=== PATIENT | female | born 1980 | race Caucasian/White ===

== ENCOUNTER 2016-08-19 10:02 | Emergency (ER) | payer OTHER ==
[2016-08-19 10:15] VITALS: BP 145/80; PULSE 78; RESP 17; TEMP 98.2; O2SAT 99
[2016-08-19 10:16] VITALS: BMI 26.2
--- NOTE | 2016-08-19 10:41 | ED PDOC ---
Arrival/HPI - General Chief Complaint: Lower Extremity Problem/Injury Time Seen by Provider: 08/19/16 10:32 Historian: Patient - History of Present Illness Narrative History of Present Illness (Text): 08/19/16 10:37 36 y/o female, no signfiicant pmh, nkda, c/o rt. calf pain x 2 days with no fall or trauma. Pt. stated that she stand alot, rt. calf started to hurt yesterday, aggravated by extensive standing, no skin discoloration or change of the temperature, no chest pain or shortness of breath, no numbness or tingling, no other medical or psychological complaints. 08/19/16 11:32 Past Medical History - Provider Review Nursing Documentation Reviewed: Yes - Infectious Disease Hx of Infectious Diseases: None - Gastrointestinal Other/Comment: Ectopic pregnacy - Psychiatric Hx Psychophysiologic Disorder: No Hx Substance Use: No - Surgical History Other/Comment: Ectopic preg - Anesthesia Hx Anesthesia: Yes Hx Anesthesia Reactions: No Hx Malignant Hyperthermia: No - Suicidal Assessment Feels Threatened In Home Enviroment: No Family/Social History - Physician Review Nursing Documentation Reviewed: Yes Family/Social History: Unknown Family HX Smoking Status: Light Smoker < 10 Cigarettes Daily Hx Alcohol Use: Yes Hx Substance Use: No Hx Substance Use Treatment: No Allergies/Home Meds Allergies/Adverse Reactions: Allergies fluconazole [From Diflucan] Allergy (Verified 08/19/16 10:11) ANAPHYLAXIS seafood Allergy (Uncoded 08/19/16 10:11) ITCHING Review of Systems - Review of Systems Constitutional: absent: Fatigue, Fevers Eyes: absent: Vision Changes ENT: absent: Hearing Changes Respiratory: absent: SOB, Cough Cardiovascular: absent: Chest Pain Gastrointestinal: absent: Abdominal Pain, Nausea, Vomiting Musculoskeletal: Myalgias. absent: Arthralgias, Back Pain, Neck Pain, Joint Swelling Skin: absent: Rash, Pruritis Physical Exam Vital Signs Reviewed: Yes Vital Signs Temp Pulse Resp BP Pulse Ox 08/19/16 10:14 98.2 F 78 17 145/80 99 Temperature: Afebrile Blood Pressure: Normal Pulse: Regular Respiratory Rate: Normal Appearance: Positive for: Well-Appearing, Non-Toxic, Comfortable Pain Distress: Moderate Mental Status: Positive for: Alert and Oriented X 3 - Systems Exam Head: Present: Atraumatic, Normocephalic Pupils: Present: PERRL Extroacular Muscles: Present: EOMI Conjunctiva: Present: Normal Mouth: Present: Moist Mucous Membranes Neck: Present: Normal Range of Motion Respiratory/Chest: Present: Clear to Auscultation, Good Air Exchange. No: Respiratory Distress, Accessory Muscle Use Cardiovascular: Present: Regular Rate and Rhythm, Normal S1, S2. No: Murmurs Abdomen: Present: Normal Bowel Sounds. No: Tenderness, Distention, Peritoneal Signs Back: Present: Normal Inspection Upper Extremity: Present: Normal Inspection. No: Cyanosis, Edema Lower Extremity: Present: Normal Inspection, Other (Rt. lower extremity: no bony or joint tenderness, negative shine and ross sign but subjective complaining about the rt. calf pain, no cellulitis or streaking, no ulcers, FROM without limitation, sensation intact, motor 5/5, +DPPT pulses, capillary refill< 2 seconds, neurovascular intact. ). No: Edema Neurological: Present: GCS=15, CN II-XII Intact, Speech Normal Skin: Present: Warm, Dry, Normal Color. No: Rashes Psychiatric: Present: Alert, Oriented x 3, Normal Insight, Normal Concentration Medical Decision Making ED Course and Treatment: 08/19/16 10:41 -Due to the location of the pain with high risk for DVT, I will obtain a DVT study with the NSAID for pain. -RLE venuous doppler -Toradol IM -Observe and reassess 08/19/16 11:32 -Pain decreased -Urine hcg negative -RLE venuous doppler as per preliminary report, no acute DVT -Pt. refused crutches and cane. -Discharge home with motrin, flexeril, heat compression, bed rest, no gym or exercise for 7 days, follow up with your own pmd within 2 days, return to the ER for any new or worsening signs or symptoms. - RAD Interpretation Radiology Orders: 08/19/16 10:37 DUPLEX LOWER EXTRM VEIN RIGHT [US] Stat RLE Venuous Doppler: as per preliminary report, no acute DVT. Dba Developer: Radiologist - Medication Orders Current Medication Orders: Discontinued Medications Ketorolac Tromethamine (Toradol) 60 mg IM STAT STA Stop: 08/19/16 10:38 Last Admin: 08/19/16 10:45 Dose: 60 MG IM Administration Charges Document 08/19/16 10:45 EQ (Rec: 08/19/16 10:45 EQ [facility] [id number] Injection Site MAR Injection Site Left Deltoid Charges for Administration # of IM Administrations 1 - PA / SYSTEM AUDITOR / Resident Statement MD/DO has reviewed & agrees with the documentation as recorded. Disposition/Present on Arrival - Present on Arrival Any Indicators Present on Arrival: No History of DVT/PE: No History of Uncontrolled Diabetes: No Urinary Catheter: No History of Decub. Ulcer: No History Surgical Site Infection Following: None - Disposition Have Diagnosis and Disposition been Completed?: Yes Diagnosis: Leg pain, right Disposition: HOME/ ROUTINE Disposition Time: 11:34 Patient Plan: Discharge Condition: GOOD Additional Instructions: Discharge home with motrin, flexeril, heat compression, bed rest, no gym or exercise for 7 days, follow up with your own pmd within 2 days, return to the ER for any new or worsening signs or symptoms. Prescriptions: Cyclobenzaprine [Cyclobenzaprine HCl] 10 mg PO TID PRN #21 tab PRN Reason: Other Ibuprofen [Motrin] 600 mg PO QID PRN #24 tab PRN Reason: Other Referrals: [facility] [place] [facility] [place] - Follow up with primary Forms: WORK NOTE
--- NOTE | 2016-08-19 15:16 | US ---
PROCEDURE: Right lower extremity venous US HISTORY: Leg pain and swelling. Evaluate for DVT. PHYSICIAN(S): Boston Rush M.D. TECHNIQUE: Duplex sonography and color-flow Doppler with graded compression were used to evaluate the deep venous system of the right lower extremity. FINDINGS: The visualized deep venous system of the right lower extremity is sonographically normal and compressible. Normal waveforms and augmentation are seen. There is no sonographic evidence for deep venous thrombosis in the visualized segments of the right lower extremity. IMPRESSION: 1. No sonographic evidence for deep venous thrombosis in the visualized segments of the right lower extremity.
== END 2016-08-19 11:57 | disposition home or self-care (01) ==
LOC: ED 10:02
DX: M79.604 Pain in right leg (principal)
CPT/HCPCS: 93971; 96372; 99284; J1885

== ENCOUNTER 2017-05-08 08:53 | Emergency (ER) | payer OTHER ==
[2017-05-08 09:13] VITALS: BMI 25.7
[2017-05-08 09:15] VITALS: BP 121/74; PULSE 82; RESP 14; TEMP 97.9; O2SAT 96
--- NOTE | 2017-05-08 09:59 | ED PDOC ---
Arrival/HPI - History of Present Illness Symptom Onset: Other Symptom Course: Unchanged Quality: Cramping Severity Level: 5 - General Chief Complaint: ENT Problem Time Seen by Provider: 05/08/17 09:15 - History of Present Illness Narrative History of Present Illness (Text): 36 year old female with no significant PMHx presents complaining of Headache x 2 weeks, Fever since Friday, and Abdominal pain x 4 days. Patients states she has tried multiple NSAIDS for her headache and it has not resolved. She states "It feels like my brain is swollen". Patient went to PMD and was diagnosed with UTI and given Bactrim. Patient has not tried any modalities to treat her abdominal pain, she denies any nausea or vomiting but does complain of loose stools. She describes abdominal pain as achy, non radiating and rates it a 5/ 10. ROS POSITIVES: Headache, abdominal pain, subjective fever NEGATIVES: Dizziness, SOB, Chest pain, N/V/D, constipation, urinary symptoms. (Vicenta Tirado) Past Medical History - Provider Review Nursing Documentation Reviewed: Yes - Past History Past History: No Previous - Infectious Disease Hx of Infectious Diseases: None - Gastrointestinal Other/Comment: Ectopic pregnacy - Psychiatric Hx Psychophysiologic Disorder: No Hx Substance Use: No - Surgical History Other/Comment: Ectopic preg - Anesthesia Hx Anesthesia: Yes Hx Anesthesia Reactions: No Hx Malignant Hyperthermia: No - Suicidal Assessment Feels Threatened In Home Enviroment: No Family/Social History - Physician Review Nursing Documentation Reviewed: Yes Family/Social History: Diabetes, Hypertension Smoking Status: Light Smoker < 10 Cigarettes Daily Hx Alcohol Use: Yes Hx Substance Use: No Hx Substance Use Treatment: No Allergies/Home Meds Allergies/Adverse Reactions: Allergies fluconazole [From Diflucan] Allergy (Verified 05/08/17 09:11) ANAPHYLAXIS seafood Allergy (Uncoded 05/08/17 09:11) ITCHING Review of Systems - Physician Review All systems were reviewed & negative as marked: Yes (As per HPI) - Review of Systems Respiratory: Normal. absent: SOB Cardiovascular: Normal. absent: Chest Pain Physical Exam Vital Signs Reviewed: Yes Temperature: Afebrile Blood Pressure: Normal Pulse: Regular Respiratory Rate: Normal Appearance: Positive for: Well-Appearing, Non-Toxic Pain Distress: Mild Mental Status: Positive for: Alert and Oriented X 3 - Systems Exam Head: Present: Atraumatic, Normocephalic. No: Tenderness Pupils: Present: PERRL Extroacular Muscles: Present: EOMI Conjunctiva: Present: Normal Mouth: Present: Moist Mucous Membranes Nose (External): Present: Atraumatic Respiratory/Chest: Present: Clear to Auscultation. No: Wheezes, Rales, Rhonchi Cardiovascular: Present: Regular Rate and Rhythm, Normal S1, S2 Abdomen: Present: Normal Bowel Sounds. No: Tenderness, Distention, Peritoneal Signs, Guarding, Rovsing's Sign Present, Mass/Organomegaly Breast/Axillary: Present: Axillary Lymphad (Right sided, Mild) Back: No: CVA Tenderness Upper Extremity: Present: NORMAL PULSES, Capillary Refill < 2s Neurological: Present: GCS=15, CN II-XII Intact, Speech Normal Lymphatic: Present: Axillary Adenopathy Psychiatric: Present: Alert, Oriented x 3, Normal Affect, Normal Mood Vital Signs Temp Pulse Resp BP Pulse Ox 05/08/17 09:15 97.9 F 82 14 121/74 96 Medical Decision Making Reassessment Condition: Improved - Lab Interpretations I have reviewed the lab results: Yes - RAD Interpretation Ground Crewman Aircraft Support: ED Physician, Radiologist ED Course and Treatment: 36 year old female with no PMHx presents with Fever, Headache, and Abdominal Pain --CBC --CMP --UA --Reglan --Toradol --Reassess and Disposition Reassessment: Symptoms have improved Labs unremarkable Patient is stable for discharge. 05/08/17 11:46 (Vicenta Tirado) 36 yo female presents with fever, cough, headache and abdominal pain. I agree with history and physical, assessment and plan of resident. Lungs: CTA b/l, no w/r/r Abdomen: soft, nt, nd, bsx4 Neuro: CN2-12 intact, No NFD, 5/5 MS, sensation intact Labs reviewed. CXR negative. Patient's headache improved with medications. Patient symptoms have been presents for over a week and she's not worsening. She already was treated with antibiotics for a UTI. She has a negative CXR. Her symptoms are consistent with a viral syndrome. She asked for an HIV test and also had one at her doctor's office and they told her it was negative. She will make sure to follow up with her PMD in 1-2days and return to the ED if symptoms worsen or any other concerns. (Ismael Holliday) - Lab Interpretations Lab Results: 05/08/17 10:40 05/08/17 10:40 Lab Results 05/08/17 10:40: Sodium 138, Potassium 4.7, Chloride 104, Carbon Dioxide 25, Anion Gap 14, BUN 11, Creatinine 0.7, Est GFR ( Amer) > 60, Est GFR (Non- Af Amer) > 60, Random Glucose 92, Calcium 9.6, Total Bilirubin 0.4, AST 28, ALT 35, Alkaline Phosphatase 78, Total Protein 7.6, Albumin 4.5, Globulin 3.1, Albumin/Globulin Ratio 1.4, Lipase 54 05/08/17 10:40: WBC 6.7 D, RBC 4.48, Hgb 14.1, Hct 41.2, MCV 92.0, MCH 31.5, MCHC 34.2, RDW 12.4, Plt Count 245, MPV 10.8, Gran % 51.3, Lymph % (Auto) 34.9, [place] % (Auto) 9.8 H, Eos % (Auto) 3.6, Baso % (Auto) 0.4, Gran # 3.44, Lymph # 2.3, [place] # 0.7 H, Eos # 0.2, Baso # 0.03 05/08/17 10:26: Urine Color Yellow, Urine Appearance Sl cloudy, Urine pH 6.5, Ur Specific [place] 1.020, Urine Protein Negative, Urine Glucose (UA) Negative, Urine Ketones Negative, Urine Blood Moderate H, Urine Nitrate Negative, Urine Bilirubin Negative, Urine Urobilinogen 0.2, Ur Leukocyte Esterase Negative, Urine RBC 0 - 2, Urine WBC 0 - 2, Ur Epithelial Cells 6 - 8, Urine Bacteria Few - RAD Interpretation Radiology Orders: 05/08/17 10:38 CXR [CHEST PORTABLE] [RAD] Stat - Medication Orders Current Medication Orders: Discontinued Medications Ketorolac Tromethamine (Toradol) 30 mg IVP STAT STA Stop: 05/08/17 10:15 Last Admin: 05/08/17 11:00 Dose: 30 mg MAR Pain Assessment Document 05/08/17 11:00 OCS (Rec: 05/08/17 11:00 OCS [id number]) Pain Reassessment Is this a pain reassessment? Yes Sleep Is patient sleeping during reassessment? No Presence of Pain Presence of Pain Yes Pain Scale Used Pain Scale Used Numeric Location Pain Location Body Welding Setter Description Description Constant Intensity of Pain at present 10 IVP Administration Document 05/08/17 11:00 OCS (Rec: 05/08/17 11:00 OCS [id number]) Charges for Administration # of IVP Administrations 1 Metoclopramide HCl (Reglan) 10 mg PO STAT STA Stop: 05/08/17 10:15 Last Admin: 05/08/17 11:00 Dose: 10 mg Disposition/Present on Arrival - Present on Arrival Any Indicators Present on Arrival: No History of DVT/PE: No History of Uncontrolled Diabetes: No Urinary Catheter: No History of Decub. Ulcer: No History Surgical Site Infection Following: None - Disposition Have Diagnosis and Disposition been Completed?: Yes Disposition Time: 11:30 Patient Plan: Discharge - Disposition Diagnosis: Viral syndrome, Headache Disposition: HOME/ ROUTINE Condition: IMPROVED Discharge Instructions (ExitCare): Viral Syndrome (ED) Additional Instructions: Ms Blakely, thank you for letting us take care of you today. Your provider was Dr. Holliday. You were treated for Viral syndrome, Headache. The emergency medical care you received today was directed at your acute symptoms. If you were prescribed any medication, please fill it and take as directed. It may take several days for your symptoms to resolve. Return to the Emergency Department if your symptoms worsen, do not improve, or if you have any other problems. Please contact your doctor or call one of the physicians/clinics you have been referred to that are listed on the Patient Visit Information form that is included in your discharge packet. Bring any paperwork you were given at discharge with you along with any medications you are taking to your follow up visit. Our treatment cannot replace ongoing medical care by a primary care provider (PCP) outside of the emergency department. Thank you for allowing the [facility] team to be part of your care today. If you had an X-Ray or CT scan: A Radiologist will review the ED reading if any change in treatment is needed we will contact you. If you had a blood, urine, or wound culture: It will take several days for the results, if any change in treatment is needed we will contact you. If you had an STI test: It will take 48 hours for the results. Please call after 1 week if you have not heard back. Prescriptions: Ibuprofen [Motrin] 600 mg PO Q6 PRN #30 tab PRN Reason: Pain, Moderate (4-7) Referrals: Kaylee Rodriguez MD [Primary Care Provider] - Follow up with primary Forms: [employer] (Sammarinese), WORK NOTE
[2017-05-08 10:34] LABS: PH,URINE 6.5 (4.7-8.0); URINE APPEARANCE SL CLOUDY (CLEAR); URINE BILIRUBIN NEGATIVE (NEGATIVE); URINE BLOOD MODERATE (NEGATIVE); URINE COLOR YELLOW (YELLOW); URINE GLUCOSE (UA) NEGATIVE (NEGATIVE); URINE KETONE NEGATIVE (NEGATIVE); URINE LEUKOCYTE ESTERASE NEGATIVE Leu/uL (NEGATIVE); URINE PROTEIN NEGATIVE mg/dL (<30 mg/dL); URINE UROBILINOGEN 0.2 E.U./dL (<1 E.U./dL)
[2017-05-08 10:40] LABS: URINE BACTERIA FEW (NEG); URINE RBC 0 - 2 /hpf (0-2); URINE WBC 0 - 2 /hpf (0-6)
--- NOTE | 2017-05-08 10:54 | RAD ---
HISTORY: Cough COMPARISON: 11/09/2015. FINDINGS: LUNGS: The lungs are hyperinflated and there is peribronchial thickening with chronic changes in both lungs. There is no focal consolidation. PLEURA: No significant pleural effusion identified, no pneumothorax apparent. CARDIOVASCULAR: Normal. OSSEOUS STRUCTURES: No significant abnormalities. VISUALIZED UPPER ABDOMEN: Normal. OTHER FINDINGS: None. IMPRESSION: No active pulmonary disease. COPD.
[2017-05-08 10:59] LABS: BASO # 0.03 K/mm3 (0.0-2.0); BASO % 0.4 % (0.0-3.0); EOS # 0.2 (0.0-0.7); EOS % 3.6 % (1.5-5.0); GRAN # 3.44 (1.4-6.5); GRAN % 51.3 % (50.0-68.0); HEMATOCRIT 41.2 % (36.0-48.0); LYMPH # 2.3 (1.2-3.4); LYMPH % 34.9 % (22.0-35.0); MEAN CORPUSCULAR HEMOGLOBIN 31.5 pg (25.0-35.0); MEAN CORPUSCULAR HGB CONC 34.2 g/dl (31.0-37.0); MEAN PLATELET VOLUME 10.8 fl (7.0-11.0); MONO # 0.7 (0.1-0.6); MONO % 9.8 % (1.0-6.0); RED CELL DISTRIBUTION WIDTH 12.4 % (11.5-14.5); WHITE BLOOD COUNT 6.7 10^3/ul (4.5-11.0)
[2017-05-08 11:01] LABS: ALB/GLOB RATIO 1.4 (1.1-1.8); ALKALINE PHOSPHATASE 78 U/L (38-126); ALT/SGPT 35 U/L (7-56); AST/SGOT 28 U/L (14-36); BILIRUBIN,TOTAL 0.4 mg/dL (0.2-1.3); BLOOD UREA NITROGEN 11 mg/dL (7-21); CALCIUM 9.6 mg/dL (8.4-10.5); CARBON DIOXIDE 25 mmol/L (21-33); CHLORIDE 104 mmol/L (98-107); GFR AFRICAN-AMERICAN > 60; GLUCOSE,RANDOM 92 mg/dL (70-110); LIPASE 54 U/L (23-300); POTASSIUM 4.7 mmol/L (3.6-5.0); SODIUM 138 mmol/L (132-148); TOTAL PROTEIN 7.6 g/dL (5.8-8.3)
== END 2017-05-08 11:06 | disposition home or self-care (01) ==
LOC: ED 08:53
DX: B34.9 Viral infection, unspecified (principal); R51 Headache
CPT/HCPCS: 71010; 80053; 81001; 83690; 85025; 96374; 99283; J1885

== ENCOUNTER 2017-09-09 07:00 | Day surgery (SDC) | payer OTHER ==
[2017-09-03 07:06] VITALS: BMI 24.7
[2017-09-09] MEDS ORDERED: Propofol 10 mg/ml Inj (20 ML) ONE (08:04)
[2017-09-09] MEDS ORDERED: Lidocaine 1% Inj (20ml) ONE (08:04)
[2017-09-09] MEDS ORDERED: Midazolam 2 MG/2 ML VIAL ONE (08:04)
[2017-09-09] MEDS ORDERED: Sodium Chloride 0.9% 1,000 ML IV SCH (09:00)
[2017-09-09 09:26] VITALS: O2SAT 100
[2017-09-09 09:35] VITALS: BP 127/77; PULSE 93; RESP 18; TEMP 97.8
== END 2017-09-09 10:15 | disposition home or self-care (01) ==
LOC: ENDO 07:00
PROVIDERS: ATTEND Internal Medicine
DX: K29.50 Unspecified chronic gastritis without bleeding (principal); D12.4 Benign neoplasm of descending colon; K64.8 Other hemorrhoids; K52.9 Noninfective gastroenteritis and colitis, unspecified; Z83.3 Family history of diabetes mellitus; Z82.49 Family history of ischemic heart disease and other diseases of the circulatory system; Z87.891 Personal history of nicotine dependence; R63.4 Abnormal weight loss
CPT/HCPCS: 43239; 45380; 84703; 88305; 88342; J2250; J2704; J3010; J7040 ×2

== ENCOUNTER 2018-10-13 08:56 | Emergency (ER) | payer OTHER ==
[2018-10-13 09:14] VITALS: RESP 18; TEMP 97.7; O2SAT 100; BMI 26.2
--- NOTE | 2018-10-13 10:48 | ED PDOC ---
Arrival/HPI - General Chief Complaint: Female Genitourinary Time Seen by Provider: 10/13/18 09:05 Historian: Patient - History of Present Illness Narrative History of Present Illness (Text): 10/13/18 11:34 38 y/o female with no significant PMH presents to the ED c/o vaginal discharge and itching x 5 days. Pt admits to white/beige thick discharge with associated pruritus to vaginal mucosa and canal. States this feels like yeast infections she has had in the past that are typically treated with terconazole from her director surface [employer]. No concern for STIs, states she practices safe sex with a monogamous partner and was recently screened at her director [employer] 1 month ago. LMP 10/05/18. Denies fever, chills, vaginal bleeding, abdominal pain, urinary symptoms, back pain, nausea, vomiting, dizziness, or any other associated symptoms. Past Medical History - Provider Review Nursing Documentation Reviewed: Yes - Past History Past History: No Previous - Infectious Disease Hx of Infectious Diseases: None - Cardiac Hx Pacemaker: No - Neurological Hx Paralysis: No - Hematological/Oncological Hx Blood Transfusions: No Hx Blood Transfusion Reaction: No - Musculoskeletal/Rheumatological Hx Musculoskeletal Disorders: No - Gastrointestinal Other/Comment: Ectopic pregnacy - Psychiatric Hx Emotional Abuse: No Hx Physical Abuse: No Hx Substance Use: No - Surgical History Other/Comment: Ectopic preg - Anesthesia Hx Anesthesia: Yes Hx Anesthesia Reactions: No Hx Malignant Hyperthermia: No - Suicidal Assessment Feels Threatened In Home Enviroment: No Family/Social History - Physician Review Nursing Documentation Reviewed: Yes Family/Social History: No Known Family HX Smoking Status: Former Smoker Hx Alcohol Use: Yes Hx Substance Use: No Hx Substance Use Treatment: No Allergies/Home Meds Allergies/Adverse Reactions: Allergies fluconazole [From Diflucan] Allergy (Severe, Verified 06/28/18 17:03) ANAPHYLAXIS seafood Allergy (Severe, Uncoded 09/03/17 07:06) ITCHING Review of Systems - Review of Systems Constitutional: Normal. absent: Fevers Eyes: Normal. absent: Vision Changes ENT: Normal. absent: Sore Throat, Sinus Congestion Respiratory: Normal. absent: SOB, Cough Cardiovascular: Normal. absent: Chest Pain, Palpitations Gastrointestinal: Normal. absent: Abdominal Pain, Stool Changes, Nausea, Vomiting, Appetite Changes Genitourinary Female: Vaginal Discharge. absent: Dysuria, Frequency, Hematuria, Urine Output Changes, Vaginal Bleeding Musculoskeletal: Normal. absent: Back Pain, Neck Pain Skin: Normal. absent: Rash Neurological: Normal. absent: Headache, Dizziness Physical Exam Vital Signs Reviewed: Yes Vital Signs Temp Pulse Resp BP Pulse Ox 10/13/18 09:13 97.7 F 89 18 138/90 100 Temperature: Afebrile Blood Pressure: Normal Pulse: Regular Respiratory Rate: Normal Appearance: Positive for: Well-Appearing, Non-Toxic, Comfortable Pain Distress: None Mental Status: Positive for: Alert and Oriented X 3 - Systems Exam Head: Present: Atraumatic, Normocephalic Pupils: Present: PERRL Extroacular Muscles: Present: EOMI Conjunctiva: Present: Normal Mouth: Present: Moist Mucous Membranes Neck: Present: Normal Range of Motion Respiratory/Chest: Present: Clear to Auscultation, Good Air Exchange. No: Respiratory Distress, Accessory Muscle Use Cardiovascular: Present: Regular Rate and Rhythm, Normal S1, S2, Peripheal Pulses Present Abdomen: Present: Normal Bowel Sounds. No: Tenderness, Distention, Peritoneal Signs Genitourinary/Pelvic Exam: Present: Normal External Genitalia, Vaginal Discharge (thick white/cream colored discharge, small amount; no odor). No: Vaginal Lesions Back: Present: Normal Inspection. No: CVA Tenderness Upper Extremity: Present: Normal Inspection, Normal ROM Lower Extremity: Present: Normal Inspection, Normal ROM Neurological: Present: GCS=15, CN II-XII Intact, Speech Normal, Motor Func Grossly Intact, Normal Sensory Function, Gait Normal Skin: Present: Warm, Dry, Normal Color. No: Rashes Psychiatric: Present: Alert, Oriented x 3, Normal Insight, Normal Concentration Medical Decision Making ED Course and Treatment: Initial Plan: * UA * POC preg * GC/Chlamydia * Pelvic Exam 10:41 Patient refusing empiric treatment for GC/Chlamydia, states she will return if results are positive. Advised to abstain from sexual activity for 1 week until she receives the results of her testing, and if positive she will need to return to emergency department for treatment and inform sexual partners so that they can be tested and treated as well. 11:15 Urinalysis negative for UTI Pelvic exam shows small amount of thick white/beige discharge without lesions, CMT, or bleeding. Suspicious for vaginal candidiasis. Pt states she has been treated multiple times in the past with terconazole suppository by her gynecologists for candidal infections in the past. Discussed with ED attending Dr. Mc who states that terconazole suppositories can be given, as patient has no history of allergic reactions to the cream in the past. Advised PMD and director [employer] followup. Diagnostic testing results and plan of care discussed with patient. Strict instructions given regarding prescription use, importance of followup, and si gns/symptoms to return to ER including vaginal bleeding, abdominal pain, fever, nausea, vomiting, or any other new/worsening symptoms. Pt verbalized understanding of discussion. Patient is A&Ox3, ambulating with steady gait, with vital signs stable for discharge. - Lab Interpretations Lab Results: Lab Results 10/13/18 09:50: Urine Color Yellow, Urine Appearance Clear, Urine pH 5.5, Ur Specific [place] 1.015, Urine Protein Negative, Urine Glucose (UA) Negative, Urine Ketones Negative, Urine Blood Negative, Urine Nitrate Negative, Urine Bilirubin Negative, Urine Urobilinogen 0.2, Ur Leukocyte Esterase Negative I have reviewed the lab results: Yes Disposition/Present on Arrival - Present on Arrival Any Indicators Present on Arrival: No History of DVT/PE: No History of Uncontrolled Diabetes: No Urinary Catheter: No History of Decub. Ulcer: No History Surgical Site Infection Following: None - Disposition Have Diagnosis and Disposition been Completed?: Yes Diagnosis: Vaginal candidiasis Disposition: HOME/ ROUTINE Disposition Time: 11:05 Patient Plan: Discharge Patient Problems: Current Active Problems Problem Status Onset Vaginal candidiasis Acute Condition: GOOD Discharge Instructions (ExitCare): Vulvovaginal Yeast Infection Additional Instructions: Insert one terconazole vaginal suppository before bed nightly for 3 days Vagisil cream to mucosa of vagina daily as needed Followup with OBGYN within 2 days Followup with primary doctor within 2 days Return to ER with any new/worsening symptoms Prescriptions: Benzocaine/Resorcinol [Vagisil Cream] 1 appl TP DAILY PRN #1 tube PRN Reason: vaginal discomfort Terconazole 80 mg VG HS #3 supp.vag Referrals: Noah Branham MD [Staff Provider] - Follow up with primary Forms: [employer] (Brazilian), WORK NOTE
[2018-10-13 10:54] LABS: PH,URINE 5.5 (4.7-8.0); URINE BILIRUBIN NEGATIVE (NEGATIVE); URINE BLOOD NEGATIVE (NEGATIVE); URINE GLUCOSE (UA) NEGATIVE (NEGATIVE); URINE LEUKOCYTE ESTERASE NEGATIVE Leu/uL (NEGATIVE); URINE PROTEIN NEGATIVE mg/dL (<30 mg/dL); URINE UROBILINOGEN 0.2 E.U./dL (<1 E.U./dL)
[2018-10-13 11:00] LABS: URINE APPEARANCE CLEAR (CLEAR); URINE COLOR YELLOW (YELLOW)
[2018-10-13 11:20] VITALS: BP 126/85; PULSE 82
== END 2018-10-13 11:22 | disposition home or self-care (01) ==
LOC: ED 08:56
DX: B37.3 Candidiasis of vulva and vagina (principal); Z87.891 Personal history of nicotine dependence